=== PATIENT | female | born 1960 | race Two or more races ===

== ENCOUNTER 2022-12-03 23:05 | Emergency (ER) | payer OTHER ==
[~2022-12-03] VITALS: Ht 160 cm; Wt 90.0 kg
[2022-12-03] MEDS ORDERED: IBUPROFEN 800 MG TAB PO ONE (23:30)
[2022-12-03 23:42] LABS: Urine Bacteria FEW /hpf (None Seen); Urine Blood Negative /uL (Negative); Urine Specific Gravity 1.006 (1.001-1.035); Urine WBC 89 /hpf (0 - 5)
[2022-12-04] MEDS ORDERED: SODIUM CHLORIDE 0.9% 1,000 ML IV ONE (01:15)
[2022-12-04] MEDS ORDERED: cefTRIAXone 1GM/50ML D5W 50 ML IV ONE (01:15)
[2022-12-04] MEDS ORDERED: SULF800T23 PO (01:18)
[2022-12-04] MEDS ORDERED: ACET500T58 PO (01:18)
[2022-12-04 01:20] VITALS: BP 140/70
== END 2022-12-04 04:20 | disposition home or self-care (01) ==
LOC: ER 23:05
DX: N39.0 Urinary tract infection, site not specified (principal); R51.9 Headache, unspecified; F32.9 Major depressive disorder, single episode, unspecified; E11.9 Type 2 diabetes mellitus without complications; I10 Essential (primary) hypertension
CPT/HCPCS: 81001; 96365; 99284; J0696; J7030